=== PATIENT | female | born 1990 ===

== ENCOUNTER 2024-12-17 05:52 | Day surgery (SDC) | payer OTHER ==
[2024-12-07 14:18] VITALS: BMI 27.1
[2024-12-17] MEDS: ceFAZolin SODIUM 1 GM VIAL IVPB ONE (09:38)
[2024-12-17] MEDS ORDERED: HYDROmorphone HCl 2 MG/ML VIAL ONE (09:44)
[2024-12-17] MEDS ORDERED: DEXMEDETOMIDINE HCL 200 MCG/2 ML IVPB ONE (09:47)
[2024-12-17] MEDS ORDERED: PROPOFOL 20 ML ONE (11:06)
[2024-12-17] MEDS ORDERED: SUGAMMADEX SODIUM 200 MG/2 ML VIAL ONE (11:20)
[2024-12-17] MEDS ORDERED: ONDANSETRON 4 MG/2 ML VIAL IVPUSH PRN (11:35)
[2024-12-17] MEDS: LACTATED RINGERS SOLUTION 1,000 ML IV SCH (11:58)
[2024-12-17 14:04] VITALS: BP 120/70; PULSE 88; RESP 20; TEMP 97.2
== END 2024-12-17 14:18 | disposition home or self-care (01) ==
LOC: JASU-SURG 05:52
PROVIDERS: ATTEND Obstetrics & Gynecology
PROC: 0UT14ZZ Resection of Left Ovary, Percutaneous Endoscopic Approach (ICD-10-PCS; 2024-12-17)
PROC: 0UB54ZZ Excision of Right Fallopian Tube, Percutaneous Endoscopic Approach (ICD-10-PCS; principal; 2024-12-17 10:00)
DX: D27.0 Benign neoplasm of right ovary (principal)
CPT/HCPCS: 81025; 86850; 86900; 86901; 88302-TC; 88305-TC; 94760